=== PATIENT | male | born 1965 | race Two or more races ===

== ENCOUNTER 2019-05-01 06:11 | Emergency (ER) | payer BC ==
[~2019-05-01] VITALS: Ht 160 cm; Wt 65.8 kg
[2019-05-01 06:21] VITALS: BP 184/91
[2019-05-01] MEDS ORDERED: DEXAMETHASONE SOD PHOS 20 MG/5 ML VIAL. IM ONE (06:30)
[2019-05-01] MEDS ORDERED: HYDR25TA PO (06:34)
[2019-05-01] MEDS ORDERED: METH4TAB2 PO (06:34)
[2019-05-01] MEDS ORDERED: BETA15OI6 TP (06:34)
--- NOTE | 2019-05-01 06:35 | PHYS DOC ---
Past Medical History Past Medical History: No Pertinent History Past Surgical History: No Surgical History Alcohol Use: None Drug Use: None Adult General Chief Complaint Chief Complaint: SKIN PROBLEM HPI HPI Patient is a 53 year old male who presents with complaining of skin rash. Patient states he was exposed to poison zenia or poison oak at his garden and developed a pruritic rash on his face, neck, upper and lower extremities one week ago that did not get better with [id number] medication. Patient denies fever and chills and shortness of breath. Review of Systems Review of Systems Constitutional: Denies fever or chills [] Eyes: Denies change in visual acuity, redness, or eye pain [] HENT: Denies nasal congestion or sore throat [] Respiratory: Denies cough or shortness of breath [] Cardiovascular: No additional information not addressed in HPI [] GI: Denies abdominal pain, nausea, vomiting, bloody stools or diarrhea [] : Denies dysuria or hematuria [] Musculoskeletal: Denies back pain or joint pain [] Integument: Reports rash and itching Neurologic: Denies headache, focal weakness or sensory changes [] Endocrine: Denies polyuria or polydipsia [] All other systems were reviewed and found to be within normal limits, except as documented in this note. Current Medications Current Medications Current Medications Medications (Trade) Dose Ordered Sig/Marcus Start Time Stop Time Status Last Admin Dose Admin Dexamethasone Sodium Phosphate (Decadron) 10 mg 1X ONCE 05/01/19 06:30 05/01/19 06:31 DC Allergies Allergies Allergies Coded Allergies Type Severity Reaction Last Updated Verified No Known Drug Allergies 09/08/15 No Physical Exam Physical Exam Constitutional: Well developed, well nourished, mild distress, non-toxic appearance. [] HENT: Normocephalic, atraumatic. Eyes: PERRLA, EOMI, conjunctiva normal, no discharge. [] Neck: Normal range of motion, no tenderness, supple, no stridor. [] Cardiovascular:Heart rate regular rhythm, no murmur [] Lungs & Thorax: Bilateral breath sounds clear to auscultation [] Skin: Warm, dry, erythematous rash on upper and lower extremities and face and anterior and posterior of neck Extremities: No tenderness, no cyanosis, no clubbing, ROM intact, no edema. [] Neurologic: Alert and oriented X 3, normal motor function, normal sensory function, no focal deficits noted. [] Psychologic: Affect normal, judgement normal, mood normal. [] EKG EKG [] Radiology/Procedures Radiology/Procedures [] Course & Med Decision Making Course & Med Decision Making Evaluation of patient in ER showed 52-year-old male patient with complaining of contact dermatitis and pruritic rash for 1 week that did not get better with [id number] medication. Patient treated with dexamethasone IM in ER and prescription for Medrol Dosepak, hydroxyzine and betamethasone ointment was given. Dragon Disclaimer Dragon Disclaimer This electronic medical record was generated, in whole or in part, using a voice recognition dictation system. Departure Departure Impression: Primary Impression: Dermatitis due to plants, including poison zenia, sumac, and oak Disposition: HOME, SELF-CARE (at [id number]) Condition: STABLE Referrals: NON,STAFF (PCP) Patient Instructions: Contact Dermatitis, Poison Zenia Additional Instructions: Drink plenty of liquids Follow-up with your primary care physician in 3-5 days Return to ER if not getting better Scripts Methylprednisolone (MEDROL) 4 Mg Tab.ds.pk 1 PKG PO UD for inflammation, #1 PKG Prov: ONIEL CHRISTINA MD 05/01/19 Hydroxyzine Hcl (HYDROXYZINE HCL) 25 Mg Tablet 1 TAB PO TID PRN for itching, #30 TAB Prov: ONIEL CHRISTINA MD 05/01/19 Betamethasone/Propylene Glyc (BETAMETHASONE DP AUG 0.05% OIN) 15 Gm Oint...g. 1 GM TP BID, #60 MISC Prov: ONIEL CHRISTINA MD 05/01/19 ONIEL CHRISTINA MD May 01, 2019 06:34
== END 2019-05-01 06:58 | disposition home or self-care (01) ==
LOC: ER 06:11
DX: L23.7 Allergic contact dermatitis due to plants, except food (principal)
CPT/HCPCS: 96372; 99283; J1100